=== PATIENT | female | born 1945 | race Caucasian/White ===

== ENCOUNTER 2016-11-21 06:08 | Day surgery (SDC) | payer MEDICARE, BC ==
[~2016-11-21 06:08] MED LIST: Buffered Lidocaine 0.9% SYRIN* 5 ML/SYR SYRINGE INTRADERM ONE; Famotidine IV* 10 MG/ML 2 ML (20 mg) IV ONE; Morphine INJ* 2 MG/ML 1 ML SYRINGE IV PRN; Ondansetron INJ* 2 MG/ML VIAL IV PRN; PROCHLORPERAZINE INJ 5 MG/ML 2 ML VIAL IV PRN; fentaNYL* 50 MCG/ML 2 ML VIAL (100 MCG VIAL) IV PRN; oxyCODONE/Acetamin 5/325 MG* TAB PO PRN
[2016-11-21] MEDS ORDERED: Buffered Lidocaine 0.9% SYRIN* 5 ML/SYR SYRINGE ONE (06:31)
[2016-11-21] MEDS ORDERED: Famotidine IV* 10 MG/ML 2 ML (20 mg) ONE (06:39)
[2016-11-21] MEDS ORDERED: fentaNYL* 50 MCG/ML 2 ML VIAL (100 MCG VIAL) ONE (07:38)
[2016-11-21] MEDS ORDERED: KETAMINE HCL* 50 MG/ML 10 ML VIAL ONE (07:39)
[2016-11-21] MEDS ORDERED: Midazolam* 1 MG/ML 5 ML VIAL (5 MG) ONE (07:39)
[2016-11-21] MEDS ORDERED: PROCHLORPERAZINE INJ 5 MG/ML 2 ML VIAL ONE (08:10)
[2016-11-21] MEDS ORDERED: Dexamethasone IV* 4 MG/ML 1 ML (4 MG) ONE (08:10)
[2016-11-21] MEDS ORDERED: Ketorolac INJ* 30 MG/ML 1 ML VIAL ONE (08:10)
[2016-11-21] MEDS ORDERED: Ondansetron INJ* 2 MG/ML VIAL ONE (08:10)
[2016-11-21] MEDS ORDERED: Propofol* 10 MG/ML 20 ML BTL IV PUSH ONE (08:10)
[2016-11-21] MEDS ORDERED: Lidocaine 2% PF * 5 ML VIAL ONE (08:10)
[2016-11-21 09:39] VITALS: BP 147/88
--- NOTE | 2016-11-23 01:22 | OP ---
DATE OF OPERATION: 11/21/16 [facility] DATE OF : 45 SURGEON: Cal Aquino MD ABATTOIR MANAGER: None. ANESTHESIOLOGIST: Dante Mckinley MD ANESTHESIA: General anesthetic with endotracheal intubation. PRE-OP DIAGNOSIS: Postmenopausal bleeding with thickened endometrium on pelvic ultrasound. POST-OP DIAGNOSES: Postmenopausal bleeding with thickened endometrium on pelvic ultrasound, anterior intrauterine wall mass, possible polyp and proliferative tissue. OPERATIVE PROCEDURE: Hysteroscopy, D and C. ESTIMATED BLOOD LOSS: None. SPECIMENS SENT TO PATHOLOGY: Endometrial curettings. IV FLUIDS: She received 1000 cc of IV crystalloid fluid. URINE OUTPUT: Clear at 20 cc. FINDINGS: The patient was noted to have a normal cervix, normal vagina, mucosa. The uterus sounded to 7.5 cm in an anteverted position. Hysteroscopically, she was noted to have a central, round to polypoid mass at the mid anterior intrauterine wall. She also had irregularly shaped endometrial cavity with moderate amounts of tissue that were removed and sent to Pathology. DESCRIPTION OF PROCEDURE: The patient was taken to the operating room where she was identified. She was placed on the operating table where a general anesthetic with endotracheal intubation was obtained without difficulty. She was then placed in the dorsal lithotomy position, prepped and draped in the normal sterile fashion. Attention was then brought on to the patient's perineum where the bladder was catheterized and cleared of urine. At this point, a weighted speculum was inserted into the patient's vagina. The cervix was identified and grasped with a single- tooth tenaculum. The uterus was then sounded to 7.5 cm and noted to be in an anteverted position. After sounding, I proceeded to dilate the cervix with Hegar dilators and then I was able to introduce a 10-mm, 30-degree hysteroscope through the cervix and a survey of the patient's intrauterine cavity revealed findings as noted above. The hysteroscope was then removed from the patient's vagina and uterus, and at this point, I proceeded with a sharp curettage of the endometrium. This was done in succession until the endometrial cavity was deemed to be completely empty. A second look with a laparoscope revealed complete denudation of the endometrial cavity, and at this point, all the instruments were removed from the patient's vagina. Sponge, lap, needle counts were correct x2. Specimens were sent to Pathology. She was then transferred to recovery room area in stable condition. [id number] #: [id number] ROSE MARIE
== END 2016-11-21 10:00 | disposition home or self-care (01) ==
LOC: OR 06:08
PROVIDERS: ATTEND Obstetrics & Gynecology
DX: N95.0 Postmenopausal bleeding (principal); N85.02 Endometrial intraepithelial neoplasia [EIN]; N84.0 Polyp of corpus uteri
CPT/HCPCS: 88305; J0780; J1100; J1885; J2250; J2405; J2704; J3010